=== PATIENT | male | born 1980 | race Caucasian/White ===

== ENCOUNTER 2016-12-30 04:49 | Emergency (ER) | payer BC, OTHER ==
[2016-12-30 04:56] VITALS: RESP 18
--- NOTE | 2016-12-30 04:59 | EDPHY ---
H & P Stated Complaint: difficulty breathing HPI/ROS: HPI CHIEF COMPLAINT: Shortness of breath HISTORY OF PRESENT ILLNESS: This patient otherwise healthy 36-year-old male does not take any daily medications, occasional marijuana use but no tobacco, he presents emergency room with 2 weeks of shortness of breath. He tells me that he feels like he cannot take a deep or full breath in. He does not have any chest pain or pleuritic pain. He denies wheezing denies cough denies fever denies productive cough. Denies nausea vomiting. He states that over the past 2 weeks he has had pretty much daily sensation of that he has restrictive lung and cannot take a deep breath in. It has been noted to him by coworkers that sometimes he has some wheezing. Denies this at this time. Decided come the emergency room at 5 o'clock in the morning as shortness of breath was worse last night. He also feels anxious. Denies any pain. No history of cardiac disease, DVT PE no history recent illness or fever. No history of underlying lung disease. Past Medical History: Denies significant medical history Past Surgical History: Denies significant surgical history Social History: Denies daily use of tobacco, illegal drugs or alcohol. Occasional marijuana use. Family History: Noncontributory ROS REVIEW OF SYSTEMS: A comprehensive 10 point review of systems is otherwise negative aside from elements mentioned in the history of present illness. Exam Constitutional triage nursing summary reviewed, vital signs reviewed, awake/ alert. vital signs are noted no hypoxia 99% oxygen saturation on room air. Eyes normal conjunctivae and sclera, EOMI, PERRLA. HENT normal inspection, atraumatic, moist mucus membranes, no epistaxis, neck supple/ no meningismus, no raccoon eyes. Respiratory good breath sounds bilaterally, no wheezing, no stridor, clear to auscultation bilaterally, normal breath sounds, no respiratory distress, no wheezing. Cardiovascular rate normal, regular rhythm, no murmur, no edema, distal pulses normal. Gastrointestinal soft, non-tender, no rebound, no guarding, normal bowel sounds, no distension, no pulsatile mass. Genitourinary no CVA tenderness. Musculoskeletal no midline vertebral tenderness, full range of motion, no calf swelling, no tenderness of extremities, no meningismus, good pulses, neurovascularly intact. Skin pink, warm, & dry, no rash, skin atraumatic. Neurologic awake, alert and oriented x 3, AAOx3, moves all 4 extremities equally, motor intact, sensory intact, CN II-XII intact, normal cerebellar, normal vision, normal speech. Psychiatric normal mood/affect. Heme/Lymph/Immune no lymphadenopathy. Differential Diagnosis: includes but is not limited to in a particular order acute anxiety, panic attack, pneumothorax, doubt acute coronary syndrome, pneumonia, reactive airway disease, musculoskeletal restriction of his chest wall, pericarditis, myocarditis Medical Decision Making: plan for this patient full awake overnight monitor, EKG, IV establishment with DuoNeb breathing treatment, IV fluid bolus, check basic blood work, including troponin. Re-evaluation. Re-evaluation: EKG interpretation by me on record in [employer] system. Impression time of EKG 5:11 a.m. sinus rhythm rate of 51 there is a nonspecific intraventricular conduction delay but I do not appreciate any specific ischemia specifically no ST elevation or ST depression. No significant T-wave abnormalities. Repeat EKG: time of EKG 5:59 a.m., sinus rhythm rate of 61 intraventricular conduction delay present. Similar to previous EKG morphology. Q-waves noted in 1 aVL similar to previous EKG. Otherwise unremarkable. 0607AM: I did re-evaluate this patient at this time. He feels much better after IV Ativan. The DuoNeb breathing treatment did not really help him. I reviewed his blood work he has a negative D-dimer and negative troponin and a chest x-ray that shows kyphosis without acute infiltrate. He most likely has restrictive lung disease from his kyphosis. He is not hypoxic here. His vital signs are stable. Did feel better after IV Ativan. I will most likely refer him to pulmonology for follow-up. Also prescription for albuterol. Additionally does understand return emergency room if has worsening symptoms. I have not found anything acute for his dyspnea x2 weeks. He does not have chest pain. 0626AM: I did re-evaluate the patient is resting comfortably. Vital signs are stable. Lung sounds are clear with good air movement in normal pulse ox. Prescription given for albuterol. Do recommend he follows up with pulmonology. It is possibly is restrictive lung disease from significant kyphosis causing dyspnea. Also possible this is anxiety given that he improved with IV Ativan. He does understand return emergency room if he has worsening symptoms questions or concerns.Patient ambulated well throughout the emergency room without any difficulty. No desaturation. No chest pain and feels better after Ativan. Will allow her to go home. Return precautions given. Follow up with pulmonology. He understands Source: Patient - Personal History Current Tetanus/Diphtheria Vaccine: Yes Current Tetanus Diphtheria and Acellular Pertussis (TDAP): Yes - Medical/Surgical History Hx Asthma: No Hx Chronic Respiratory Disease: No Hx Diabetes: No Hx Cardiac Disease: No Hx Renal Disease: No Hx Cirrhosis: No Hx Alcoholism: No Hx HIV/AIDS: No Hx Splenectomy or Spleen Trauma: No Other PMH: L talus repair JEAN inguinal hernia repair, - Social History Smoking Status: Never smoked Constitutional: Initial Vital Signs Temperature (C) 36.6 C 12/30/16 04:53 Heart Rate 52 L 12/30/16 04:53 Respiratory Rate 18 12/30/16 04:53 Blood Pressure 137/87 H 12/30/16 04:53 O2 Sat (%) 100 12/30/16 04:53 O2 Delivery Mode Room Air Allergies/Adverse Reactions: acetaminophen [From Darvocet-N 100] Allergy (Verified 12/30/16 04:52) Hives propoxyphene napsylate [From Darvocet-N 100] Allergy (Verified 12/30/16 04:52) Hives Home Medications: Medication Instructions Recorded Miscellaneous Medical Supply [NO 1 ea MISC AD 05/02/12 HOME MEDS] Albuterol [Proventil Inhaler HFA 1 - 2 puffs IH Q4H #1 mdi 12/30/16 (*)] Medical Decision Making - Data Points Laboratory Results: Laboratory Results 12/30/16 05:10 12/30/16 05:10 12/30/16 12/30/16 12/30/16 05:10 05:10 05:10 WBC 8.72 10^3/uL 10^3/uL (3.80-9.50) RBC 5.43 10^6/uL 10^6/uL (4.40-6.38) Hgb 16.9 g/dL g/dL (13.7-17.5) Hct 48.0 % % (40.0-51.0) MCV 88.4 fL fL (81.5-99.8) MCH 31.1 pg pg (27.9-34.1) MCHC 35.2 g/dL g/dL (32.4-36.7) RDW 11.9 % % (11.5-15.2) Plt Count 290 10^3/uL 10^3/uL (150-400) MPV 10.1 fL fL (8.7-11.7) Neut % (Auto) 59.1 % % (39.3-74.2) Lymph % (Auto) 28.4 % % (15.0-45.0) [place] % (Auto) 9.5 % % (4.5-13.0) Eos % (Auto) 2.2 % % (0.6-7.6) Baso % (Auto) 0.5 % % (0.3-1.7) Nucleat RBC Rel Count 0.0 % % (0.0-0.2) Absolute Neuts (auto) 5.15 10^3/uL 10^3/uL (1.70-6.50) Absolute Lymphs (auto) 2.48 10^3/uL 10^3/uL (1.00-3.00) Absolute Monos (auto) 0.83 10^3/uL H 10^3/uL (0.30-0.80) Absolute Eos (auto) 0.19 10^3/uL 10^3/uL (0.03-0.40) Absolute Basos (auto) 0.04 10^3/uL 10^3/uL (0.02-0.10) Absolute Nucleated RBC 0.00 10^3/uL 10^3/uL (0-0.01) Immature Gran % 0.3 % % (0.0-1.1) Immature Gran # 0.03 10^3/uL 10^3/uL (0.00-0.10) D-Dimer < 0.27 ug/mLFEU ug/mLFEU (0.00-0.50) Sodium 147 mEq/L H mEq/L (134-144) Potassium 3.8 mEq/L mEq/L (3.5-5.2) Chloride 107 mEq/L mEq/L (97-110) Carbon Dioxide 22 mEq/l mEq/l (22-31) Anion Gap 18 mEq/L H mEq/L (8-16) BUN 8 mg/dL mg/dL (7-23) Creatinine 0.9 mg/dL mg/dL (0.7-1.3) Estimated GFR > 60 Glucose 154 mg/dL H mg/dL (70-100) Calcium 9.7 mg/dL mg/dL (8.5-10.4) Magnesium 2.2 mg/dL mg/dL (1.6-2.3) Total Bilirubin 0.9 mg/dL mg/dL (0.1-1.4) Conjugated Bilirubin 0.3 mg/dL mg/dL (0.0-0.5) Unconjugated Bilirubin 0.6 mg/dL mg/dL (0.0-1.1) AST 35 IU/L IU/L (17-59) ALT 35 IU/L IU/L (21-72) Alkaline Phosphatase 66 IU/L IU/L (38-126) Creatine Kinase 331 IU/L H IU/L (0-224) CK-MB (CK-2) Fraction 3.48 ng/mL H ng/mL (0-3.19) CK-MB (CK-2) % 1.1 % % (0.0-4.0) Creatine Kinase Interp NEGATIVE (NEGATIVE) Troponin I < 0.012 ng/mL ng/mL (0-0.034) NT-Pro-B Natriuret Pep 35 pg/mL pg/mL (0-125) Total Protein 7.9 g/dL g/dL (6.3-8.2) Albumin 4.8 g/dL g/dL (3.5-5.0) Medications Given: Discontinued Medications Albuterol/Ipratropium (Duoneb) 3 ml IH EDNOW ONE Stop: 12/30/16 05:04 Last Admin: 12/30/16 05:16 Dose: 3 ml Sodium Chloride (Ns) 1,000 mls @ 0 mls/hr IV ONCE ONE; Wide Open PRN Reason: Protocol Stop: 12/30/16 05:04 Last Admin: 12/30/16 05:17 Dose: 1,000 mls Lorazepam (Ativan Injection) 0.5 mg IVP EDNOW ONE Stop: 12/30/16 05:34 Last Admin: 12/30/16 05:35 Dose: 0.5 mg Departure - Departure Disposition: Home, Routine, Self-Care Clinical Impression: Dyspnea Qualifiers: Dyspnea type: unspecified Qualified Code(s): R06.00 - Dyspnea, unspecified Condition: Good Instructions: Dyspnea (ED) Additional Instructions: 1. return emergency room if you have worsening symptoms of shortness of breath chest pain or any questions or concerns. 2.Please follow up with pulmonology call their make an outpatient follow-up appointment. Referrals: DOTTY CALVIN [Primary Care Provider] - As per Instructions Juan A Garcia MD [Medical Doctor] - As per Instructions Prescriptions: Albuterol [Proventil Inhaler HFA (*)] 1 - 2 puffs IH Q4H #1 mdi
[2016-12-30] MEDS ORDERED: IPRATROPIUM/ALBUTEROL 3 ML DEYVIAL IH ONE (05:03)
[2016-12-30] MEDS ORDERED: NS 1,000 ML IV ONE (05:03)
[2016-12-30] MEDS ORDERED: IPRATROPIUM/ALBUTEROL 3 ML DEYVIAL ONE (05:04)
--- NOTE | 2016-12-30 05:13 | CPEKG ---
Heart Rate: 51 RR Interval: 1176 P-R Interval: 152 QRSD Interval: 124 QT Interval: 444 QTC Interval: 409 P [place]: 44 QRS [place]: -35 T Wave [place]: -12 EKG Severity - ABNORMAL ECG - EKG Impression: SINUS RHYTHM EKG Impression: NONSPECIFIC INTRAVENTRICULAR CONDUCTION DELAY EKG Impression: LATERAL INFARCT, OLD Electronically Signed By: Andreas Hicks 02-Jan-2017 09:10:53
[2016-12-30 05:16] LABS: % IMMATURE GRANULYOCYTES 0.3 % (0.0-1.1); ABSOLUTE IMMATURE GRANULOCYTES 0.03 10^3/uL (0.00-0.10); ADD DIFF? NO; ADD MORPH? NO; ADD SCAN? NO; ATYPICAL LYMPHOCYTE FLAG 10 (0-99); FRAGMENT RBC FLAG 0 (0-99); HEMOGLOBIN 16.9 g/dL (13.7-17.5); LEFT SHIFT FLG 0 (0-99); LIPEMIA HEMOLYSIS FLAG 90 (0-99); MEAN CELL HEMOGLOBIN 31.1 pg (27.9-34.1); MEAN CELL HEMOGLOBIN CONCENTR. 35.2 g/dL (32.4-36.7); MEAN CELL VOLUME 88.4 fL (81.5-99.8); MEAN PLATELET VOLUME 10.1 fL (8.7-11.7); PLATELET CLUMPS FLAG 10 (0-99); PLATELET COUNT 290 10^3/uL (150-400); RED BLOOD CELL COUNT 5.43 10^6/uL (4.40-6.38); RED CELL DISTRIBUTION WIDTH 11.9 % (11.5-15.2)
[2016-12-30] MEDS ORDERED: LORazepam 2 MG/ML INJ ONE (05:33)
[2016-12-30] MEDS ORDERED: LORazepam 2 MG/ML INJ IVP ONE (05:33)
[2016-12-30 05:34] LABS: ALANINE AMINOTRANSFERASE 35 IU/L (21-72); ALBUMIN 4.8 g/dL (3.5-5.0); ALKALINE PHOSPHATASE 66 IU/L (38-126); ANION GAP 18 mEq/L (8-16); ASPARTATE AMINOTRANSFERASE 35 IU/L (17-59); BILIRUBIN,TOTAL 0.9 mg/dL (0.1-1.4); BILIRUBIN-CONJUGATED 0.3 mg/dL (0.0-0.5); BILIRUBIN-UNCONJUGATED 0.6 mg/dL (0.0-1.1); CALCIUM 9.7 mg/dL (8.5-10.4); CARBON DIOXIDE 22 mEq/l (22-31); CHLORIDE 107 mEq/L (97-110); CREATININE 0.9 mg/dL (0.7-1.3); GLOMERULAR FILTRATION RATE > 60; GLUCOSE 154 mg/dL (70-100); MAGNESIUM 2.2 mg/dL (1.6-2.3); POTASSIUM 3.8 mEq/L (3.5-5.2); SODIUM 147 mEq/L (134-144); TOTAL PROTEIN 7.9 g/dL (6.3-8.2)
[2016-12-30 05:45] LABS: CK-MB INTERPRETATION NEGATIVE (NEGATIVE); TROPONIN I < 0.012 ng/mL (0-0.034)
[2016-12-30 05:48] LABS: CREATINE KINASE-MB FRACTION 3.48 ng/mL (0-3.19)
--- NOTE | 2016-12-30 06:01 | CPEKG ---
Heart Rate: 61 RR Interval: 984 P-R Interval: 160 QRSD Interval: 126 QT Interval: 440 QTC Interval: 444 P [place]: 46 QRS [place]: -22 T Wave [place]: -32 EKG Severity - ABNORMAL ECG - EKG Impression: SINUS ARRHYTHMIA, RATE 52-71 EKG Impression: IVCD, CONSIDER ATYPICAL RBBB EKG Impression: LATERAL INFARCT, AGE INDETERMINATE Electronically Signed By: Andreas Hicks 02-Jan-2017 09:10:45
[2016-12-30 06:43] VITALS: BP 122/69; PULSE 65; TEMP 98.1; O2SAT 97
== END 2016-12-30 06:43 | disposition home or self-care (01) ==
DX: R06.00 Dyspnea, unspecified (principal); E86.9 Volume depletion, unspecified
CPT/HCPCS: 96374; J2060